=== PATIENT | female | born 1995 | race Caucasian/White ===

== ENCOUNTER 2023-04-13 23:58 | Inpatient (IN) | payer BC ==
[~2023-04-13 23:58] MED LIST: Bupivacaine 0.25% HCL 30 ML VIAL ONE
[2023-04-14] MEDS: Lactated Ringer's 1,000 ML IV SCH ×2 (00:27→01:59)
[2023-04-14 00:28] VITALS: BMI 26.9
[2023-04-14 00:49] LABS: Hematocrit 37.7 % (34.9-44.5); Hemoglobin 12.8 g/dL (12.0-15.5); Mean Corpuscular Hemoglobin 29.6 pg (27.0-33.0); Mean Corpuscular Volume 87.1 fl (81.6-98.3); Mean Platelet Volume 10.9 fl (7.4-10.4); Platelet Count 224 10x3/uL (150-450); RBC Distribution Width 13.4 % (11.5-14.5); Red Blood Cell (RBC) Count 4.33 10x6/uL (3.90-5.03); White Blood Cell (WBC) Count 6.8 10x3/uL (3.5-10.5)
[2023-04-14] MEDS ORDERED: fentaNYL/Ropivacaine Epidural 100 ML ONE (00:51)
[2023-04-14] MEDS ORDERED: fentaNYL 50 mcg/mL 1 mL Vial SLOW IVP PRN (00:55)
[2023-04-14] MEDS ORDERED: Tranexamic Acid 1,000 MG/10 ML VIAL IVP PRN (00:55)
[2023-04-14] MEDS ORDERED: Acetaminophen 500 MG TAB PO PRN (01:00)
[2023-04-14] MEDS ORDERED: Methylergonovine 0.2 MG/ML VIAL IM PRN (01:00)
[2023-04-14] MEDS ORDERED: Diphenoxylate HCl/Atropine Tablet PO PRN ×2 (01:00)
[2023-04-14] MEDS ORDERED: Carboprost 250 MCG/ML AMP IM PRN (01:00)
[2023-04-14] MEDS ORDERED: Lidocaine 1% (PF) 30 ML VIAL SC PRN (01:00)
[2023-04-14] MEDS ORDERED: Oxytocin 30 units/NS 500 ML 500 ML IVPB SCH (01:00)
[2023-04-14] MEDS ORDERED: Misoprostol 200 MCG TAB RC PRN (01:00)
[2023-04-14] MEDS ORDERED: Ondansetron PF 4 MG/2 ML Vial IVP PRN ×2 (01:00→12:00)
[2023-04-14] MEDS ORDERED: Promethazine HCl 25 MG/ML VIAL IM PRN (01:00)
[2023-04-14] MEDS ORDERED: hydrALAZINE 20 MG/ML VIAL SLOW IVP PRN ×2 (01:00→12:00)
[2023-04-14 01:13] LABS: HBSAg Index 0.06 S/CO (0-0.99); Hep B Surf Ag - L&D Non-Reactive S/CO (NonReactive)
[2023-04-14 01:46] LABS: Syphilis Antibody Nonreactive (Nonreactive); Syphilis Antibody Index 0.19 S/CO (<1.00 Non-Reactive)
[2023-04-14] MEDS ORDERED: diphenhydrAMINE 25 MG CAP PO PRN (12:00)
[2023-04-14] MEDS ORDERED: Prenatal Vitamin 1 TAB PO SCH (12:00)
[2023-04-14] MEDS ORDERED: Docusate 100 MG CAP PO SCH (12:00)
[2023-04-14] MEDS ORDERED: HYDROcodone/Acetaminophen 5/325 mg Tablet PO PRN ×2 (12:00)
[2023-04-14] MEDS ORDERED: Oxytocin 30 units/NS 500 ML 500 ML IV SCH (12:00)
[2023-04-14] MEDS ORDERED: Boostrix 0.5 ML (Tdap) VIAL (>/=7 yrs of age) IM ONE (12:00)
[2023-04-14] MEDS ORDERED: Milk Of Magnesia 30 ML UDCUP PO PRN (12:00)
[2023-04-14] MEDS ORDERED: Benzocaine-Menthol 82.5 ML CAN TOP PRN (12:00)
[2023-04-14] MEDS ORDERED: Ferrous Sulfate 325 MG TAB PO SCH (12:00)
[2023-04-14] MEDS ORDERED: Preparation H Ointment 28 GM TUBE PR PRN (12:00)
[2023-04-14] MEDS ORDERED: Bisacodyl 10 MG SUPP PR PRN (12:00)
[2023-04-14] MEDS ORDERED: Lanolin Ointment 7 GM TUBE TOP PRN (12:00)
[2023-04-14] MEDS ORDERED: Witch Hazel-Glycerin 1 EACH JAR TOP PRN (14:30)
[2023-04-14] MEDS: Ibuprofen 800 MG TAB PO SCH ×2 (17:07→21:33)
[2023-04-14] MEDS: Ferrous Sulfate 325 MG TAB PO SCH (17:08)
[2023-04-14] MEDS: Docusate 100 MG CAP PO SCH (21:33)
[2023-04-15] MEDS: Ibuprofen 800 MG TAB PO SCH ×3 (05:29→21:32)
[2023-04-15] MEDS: Ferrous Sulfate 325 MG TAB PO SCH ×2 (14:08→18:18)
[2023-04-15] MEDS: Docusate 100 MG CAP PO SCH ×2 (14:09→21:32)
[2023-04-15] MEDS: Prenatal Vitamin 1 TAB PO SCH (14:09)
[2023-04-16] MEDS: Ibuprofen 800 MG TAB PO SCH (05:33)
[2023-04-16 08:20] VITALS: BP 120/77; TEMP 98.6
[2023-04-16] MEDS: Prenatal Vitamin 1 TAB PO SCH (11:29)
[2023-04-16] MEDS: Ferrous Sulfate 325 MG TAB PO SCH (11:29)
[2023-04-16] MEDS: Docusate 100 MG CAP PO SCH (11:29)
== END 2023-04-16 12:45 | disposition home or self-care (01) | DRG 807 ==
LOC: UNDOADMIN 23:58 → CSHLD 23:58 → CSHPP 04-14 10:02 → CSHLD 04-14 10:02
PROVIDERS: ADMIT Obstetrics & Gynecology; ATTEND Obstetrics & Gynecology
PROC: 10E0XZZ Delivery of Products of Conception, External Approach (ICD-10-PCS; principal; 2023-04-14)
PROC: 0KQM0ZZ Repair Perineum Muscle, Open Approach (ICD-10-PCS; 2023-04-14)
DX: O42.02 Full-term premature rupture of membranes, onset of labor within 24 hours of rupture (principal); Z37.0 Single live birth; O70.1 Second degree perineal laceration during delivery; Z3A.39 39 weeks gestation of pregnancy
CPT/HCPCS: 36415; 51702; 85027; 86780; 86850; 86900; 86901; 87340; 99285; J7120; S0020